=== PATIENT | female | born 1960 | race American Indian/Alaskan Native ===

== ENCOUNTER 2016-10-11 13:51 | Outpatient (CLI) | payer OTHER ==
--- NOTE | 2016-10-11 16:27 | Ultrasound Report ---
DIAGNOSTIC LEFT MAMMOGRAM AND TARGETED LEFT BREAST ULTRASOUND: HISTORY: Recall for left asymmetry seen in one view. FINDINGS: A spot compression image demonstrates effacement of the previously noted asymmetric density in the inferior left breast. The 90 degree view demonstrates a questionable residual density and therefore ultrasound was performed. Targeted ultrasound demonstrates a 3 mm cyst at the 2:00 position, 4 cm from the nipple. This does not represent the mammographic density. IMPRESSION: No suspicious imaging findings. A tiny cyst is noted at 2:00. BI-RADS CATEGORY: 2 = Benign ACR BI-RADS MAMMOGRAPHIC CODES: 0 = Needs additional imaging evaluation; 1 = Negative; 2 = Benign; 3 = Probably benign; 4 = Suspicious; 5 = Malignant; 6 = Known biopsy-proven malignancy COMMENT: 1. Dense breast tissue, i.e., adenosis, fibrocystic changes, etc., may obscure an underlying neoplasm. 2. Approximately 10% of cancers are not detected with mammography. 3. A negative mammography report should not delay biopsy if a clinically suspicious mass is present. RECOMMENDATION: Annual screening.
== END 2016-10-11 13:52 | disposition home or self-care (01) ==
LOC: MAMMO 13:51
PROVIDERS: ATTEND Obstetrics & Gynecology
DX: N60.02 Solitary cyst of left breast (principal)
CPT/HCPCS: 76642; G0206

== ENCOUNTER 2017-12-02 13:32 | Outpatient (CLI) | payer OTHER ==
--- NOTE | 2017-12-03 09:55 | Mammography Report ---
Bilateral mammogram: Compared to 09/22/16. CAD study utilized. Findings: Predominance adipose tissue bilaterally. Circumscribed 3 mm diameter density is again identified at lower inner anterior left breast. No significant interval change is noted in size. The margin appears fairly well circumscribed. No microcalcifications. Impression: Probably benign density. Six-month followup recommended. BI-RADS CATEGORY: 3 = Probably benign ACR BI-RADS MAMMOGRAPHIC CODES: 0 = Needs additional imaging evaluation; 1 = Negative; 2 = Benign; 3 = Probably benign; 4 = Suspicious; 5 = Malignant; 6 = Known biopsy-proven malignancy COMMENT: 1. Dense breast tissue, i.e., adenosis, fibrocystic changes, etc., may obscure an underlying neoplasm. 2. Approximately 10% of cancers are not detected with mammography. 3. A negative mammography report should not delay biopsy if a clinically suspicious mass is present. COMMENT: Patient follow-up letters are generated in [employer].
== END 2017-12-02 13:33 | disposition home or self-care (01) ==
LOC: MAMMO 13:32
PROVIDERS: ATTEND Obstetrics & Gynecology
DX: Z12.31 Encounter for screening mammogram for malignant neoplasm of breast (principal)
CPT/HCPCS: 77067

== ENCOUNTER 2018-12-04 13:59 | Outpatient (CLI) | payer OTHER ==
--- NOTE | 2018-12-04 15:05 | Mammography Report ---
BILATERAL DIGITAL SCREENING MAMMOGRAM with CAD: 12/04/18 13:59:00 CLINICAL: Routine screening. COMPARISON:12/02/17 and 09/22/16 FINDINGS: There are scattered areas of fibroglandular density. No mass, architectural distortion or suspicious calcifications. IMPRESSION: No mammographic evidence of malignancy. BI-RADS CATEGORY: 2 -- Benign RECOMMENDATION: Routine mammographic screening in one year. COMMENT: Patient follow-up letters are generated by our [employer] application.
== END 2018-12-04 14:00 | disposition home or self-care (01) ==
LOC: MAMMO 13:59
PROVIDERS: ATTEND Obstetrics & Gynecology
DX: Z12.31 Encounter for screening mammogram for malignant neoplasm of breast (principal); I10 Essential (primary) hypertension
CPT/HCPCS: 77067

== ENCOUNTER 2020-01-12 14:28 | Emergency (ER) | payer OTHER ==
[2020-01-12] MEDS ORDERED: traMADol 50 MG TAB PO ONE ×2 (14:46→15:06)
[2020-01-12] MEDS ORDERED: dexAMETHasone 20 MG/5 ML VIAL IM ONE (14:46)
--- NOTE | 2020-01-12 14:51 | Emergency Department Report ---
ED Extremity Problem HPI - General Chief complaint: Extremity Injury, Lower Stated complaint: GOUT Time Seen by Provider: 01/12/20 14:45 Source: patient, family Mode of arrival: Wheelchair Limitations: No Limitations - History of Present Illness Initial comments: Patient is a 59-year-old female presents emergency room with complaints of acute gout flare that began approximately a week ago. She states that the flare is in her left big toe, left ankle, left knee. She states that she takes allopurinol for gout but it has not been helping. She denies any fall or injury. She denies any numbness or weakness. She does not report any fever, nausea, vomiting, diarrhea. She states that this feels similar to previous gout flares. She denies any other past medical history. She denies allergies to medications. She states that she did not drive to the emergency department today. - Related Data Home Medications Medication Instructions Recorded Confirmed Last Taken Lisinopril 20 mg PO DAILY 06/04/15 06/04/15 Unknown Previous Rx's Medication Instructions Recorded Last Taken Type Colchicine [Colcrys] 0.6 mg PO BID #12 tab 06/04/15 Unknown Rx HYDROcodone/APAP 5-325 [[place] 1 each PO Q6HR PRN #20 tablet 06/04/15 Unknown Rx 5/325] predniSONE [Deltasone] 40 mg PO QDAY #10 tab 06/04/15 Unknown Rx Colchicine 0.6 mg PO ONCE 1 Days #3 capsule 01/12/20 Unknown Rx Indomethacin 50 mg PO TID #21 capsule 01/12/20 Unknown Rx predniSONE [Deltasone] 40 mg PO QDAY 5 Days #10 tab 01/12/20 Unknown Rx traMADoL [Ultram 50 MG tab] 50 mg PO Q6HR PRN #7 tablet 01/12/20 Unknown Rx Allergies Allergy/AdvReac Type Severity Reaction Status Date / Time No Known Allergies Allergy Unverified 06/04/15 12:12 ED Review of Systems ROS: Stated complaint: GOUT Other details as noted in HPI Comment: All other systems reviewed and negative ED Past Medical Hx - Past Medical History Previous Medical History?: Yes Hx Hypertension: Yes Additional medical history: Gout - Surgical History Past Surgical History?: Yes Additional Surgical History: Myomectomy - Social History Smoking Status: Never Smoker Substance Use Type: Alcohol - Medications Home Medications: Home Medications Medication Instructions Recorded Confirmed Last Taken Type Colchicine [Colcrys] 0.6 mg PO BID #12 tab 06/04/15 Unknown Rx HYDROcodone/APAP 5-325 [[place] 1 each PO Q6HR PRN #20 tablet 06/04/15 Unknown Rx 5/325] Lisinopril 20 mg PO DAILY 06/04/15 06/04/15 Unknown History predniSONE [Deltasone] 40 mg PO QDAY #10 tab 06/04/15 Unknown Rx Colchicine 0.6 mg PO ONCE 1 Days #3 capsule 01/12/20 Unknown Rx Indomethacin 50 mg PO TID #21 capsule 01/12/20 Unknown Rx predniSONE [Deltasone] 40 mg PO QDAY 5 Days #10 tab 01/12/20 Unknown Rx traMADoL [Ultram 50 MG tab] 50 mg PO Q6HR PRN #7 tablet 01/12/20 Unknown Rx ED Physical Exam - General Limitations: No Limitations General appearance: alert, in no apparent distress - Head Head exam: Present: atraumatic, normocephalic - Eye Eye exam: Present: normal appearance - ENT ENT exam: Present: mucous membranes moist - Extremities Exam Extremities exam: Present: other (edema and increased warmth present to the left big toe, left ankle, and left knee, no erythema, FROM of the left toes, knee, and ankle, she has some mild discomfort with movement, neurovascularly intact) - Neurological Exam Neurological exam: Present: alert, oriented X3 - Psychiatric Psychiatric exam: Present: normal affect, normal mood ED Course Vital Signs 01/12/20 01/12/20 01/12/20 14:31 15:08 15:34 Temperature 98.2 F Pulse Rate 97 H Respiratory 14 18 18 Rate Blood Pressure 137/93 O2 Sat by Pulse 99 Oximetry ED Medical Decision Making - Medical Decision Making Patient is a 59-year-old female presents emergency room with complaints of acute gout flare that began approximately a week ago. She states that the flare is in her left big toe, left ankle, left knee. She states that she takes allopurinol for gout but it has not been helping. She denies any fall or injury. She denies any numbness or weakness. She does not report any fever, nausea, vomiting, diarrhea. She states that this feels similar to previous gout flares. She denies any other past medical history. She denies allergies to medications. She states that she did not drive to the emergency department today. VSS. examination consistent with edema and increased warmth present to the left big toe, left ankle, and left knee, no erythema, FROM of the left toes, knee, and ankle, she has some mild discomfort with movement, neurovascularly intact. examination consistent with acute gout flare. no clinic signs of septic joint. pt given dexamethasone IM and tramadol. given prescription indomethacin, prednisone, colchicine, tramadol. advised pt to please take medication as prescribed. Do not drive or operate heavy machinery while taking pain medication. Please follow-up with a primary care doctor. Please follow-up with your orthopedic doctor. Return to the emergency room for any new or worsening symptoms. - Differential Diagnosis gout, osteoarthritis, RA, arthritis, septic joint, DJD Critical care attestation.: If time is entered above; I have spent that time in minutes in the direct care of this critically ill patient, excluding procedure time. ED Disposition Clinical Impression: Acute gout Qualifiers: Gout site: multiple sites Gout etiology: unspecified cause Qualified Code(s): M10.9 - Gout, unspecified Disposition: DC TO HOME OR SELFCARE Is pt being admited?: No Does the pt Need Aspirin: No Condition: Stable Instructions: Acute Gouty Arthritis (ED) Additional Instructions: Please take medication as prescribed. Do not drive or operate heavy machinery while taking pain medication. Please follow-up with a primary care doctor. Please follow-up with your orthopedic doctor. Return to the emergency room for any new or worsening symptoms. Prescriptions: Colchicine 0.6 mg PO ONCE 1 Days #3 capsule predniSONE [Deltasone] 40 mg PO QDAY 5 Days #10 tab Indomethacin 50 mg PO TID #21 capsule traMADoL [Ultram 50 MG tab] 50 mg PO Q6HR PRN #7 tablet PRN Reason: Pain , Severe (7-10) Referrals: your, orthopedic doctor [Other] - 3-5 Days PRIMARY CARE, [Referring] - 3-5 Days Time of Disposition: 14:49 Print Language: ARABIC
[2020-01-12 15:03] VITALS: BP 137/93
== END 2020-01-12 15:26 | disposition home or self-care (01) ==
LOC: ED 14:28
DX: M10.9 Gout, unspecified (principal); I10 Essential (primary) hypertension
CPT/HCPCS: 96372; 99282; J1100

== ENCOUNTER 2020-03-08 11:25 | Emergency (ER) | payer OTHER ==
[2020-03-08 16:32] VITALS: BP 118/64
== END 2020-03-08 16:40 | disposition home or self-care (01) ==
LOC: ED 11:25
DX: S80.01XA Contusion of right knee, initial encounter (principal); I10 Essential (primary) hypertension; M10.9 Gout, unspecified; Z79.899 Other long term (current) drug therapy; Z98.890 Other specified postprocedural states; W18.30XA Fall on same level, unspecified, initial encounter; Y93.89 Activity, other specified; Y92.099 Unspecified place in other non-institutional residence as the place of occurrence of the external cause; Y99.8 Other external cause status

== ENCOUNTER 2021-04-10 13:04 | Outpatient (CLI) | payer OTHER ==
--- NOTE | 2021-04-10 17:45 | Mammography Report ---
DIGITAL SCREENING MAMMOGRAM WITH CAD, 04/10/2021 INDICATION: Routine screening mammography. TECHNIQUE: Digital bilateral 2D mammography was obtained in the craniocaudal and mediolateral obliq ue projections. This examination was interpreted with the benefit of Computer-Aided Detection analysi s. COMPARISON: 04/03/2020 FINDINGS: Breast Density: There are scattered areas of fibroglandular density. There is no evidence of dominant mass, suspicious calcifications or architectural distortion in eithe r breast. IMPRESSION: Follow up recommendation: Routine yearly BI-RADS Category 1: Negative. A "normal" or negative report should not discourage follow up or biopsy of a clinically significant f inding. A written summary of these findings will be mailed to the patient. The patient will be entered into a mammography reporting system which will generate a reminder letter for the patient's next appointmen t at the appropriate interval. The [employer] recommends yearly mammograms starting at age 40 and continuing as l esthela as a woman is in good health. Breast MRI is recommended for women with an approximate 20-25% or greater lifetime risk of breast cancer, including women with a strong family history of breast or ova oliverio cancer or who have been treated for Hodgkin's disease. Signer Name: William Larsen MD Signed: 04/10/2021 5:40 PM Workstation Name: [email or web address]
== END 2021-04-10 13:05 | disposition home or self-care (01) ==
LOC: MAMMO 13:04
PROVIDERS: ATTEND Obstetrics & Gynecology
DX: Z12.31 Encounter for screening mammogram for malignant neoplasm of breast (principal)
CPT/HCPCS: 77067

== ENCOUNTER 2022-05-17 10:08 | Outpatient (CLI) | payer OTHER ==
--- NOTE | 2022-05-19 09:42 | Mammography Report ---
DIGITAL SCREENING MAMMOGRAM WITH CAD, 05/17/2022 CLINICAL INFORMATION / INDICATION: Routine screening mammography. TECHNIQUE: Digital bilateral 2D mammography was obtained in the craniocaudal and mediolateral obliqu e projections. This examination was interpreted with the benefit of Computer-Aided Detection analysis . COMPARISON: Prior mammograms 04/20/2021 and 04/03/2020 FINDINGS: Breast Density: There are scattered areas of fibroglandular density. No dominant mass, suspicious calcifications, or architectural distortion in either breast. There has been no significant change compared with the prior examinations. IMPRESSION: No mammographic evidence of malignancy. Follow up recommendation: Routine yearly screening mammogram. BI-RADS Category 1: NEGATIVE A "normal" or negative report should not discourage follow up or biopsy of a clinically significant f inding. A written summary of these findings will be mailed to the patient. The patient will be entered into a mammography reporting system which will generate a reminder letter for the patient's next appointmen t at the appropriate interval. The [employer] recommends yearly mammograms starting at age 40 and continuing as l esthela as a woman is in good health. Breast MRI is recommended for women with an approximate 20-25% or greater lifetime risk of breast cancer, including women with a strong family history of breast or ova oliverio cancer or who have been treated for Hodgkin's disease. Signer Name: Libra Proctor MD Signed: 05/19/2022 9:37 AM Workstation Name: [id number]
== END 2022-05-17 10:09 | disposition home or self-care (01) ==
LOC: MAMMO 10:08
PROVIDERS: ATTEND Obstetrics & Gynecology
DX: Z12.31 Encounter for screening mammogram for malignant neoplasm of breast (principal)
CPT/HCPCS: 77067